=== PATIENT | male | born 1990 | race Caucasian/White ===

== ENCOUNTER 2016-11-18 01:54 | Emergency (ER) | payer OTHER ==
[~2016-11-18] VITALS: Ht 177.8 cm; Wt 82.7 kg
[2016-11-18 01:56] VITALS: TEMP 36.5; Ht 177.8 cm; Wt 82.7 kg
[2016-11-18] MEDS ORDERED: XYLOCAINE 1%/SOD BICARB 20 ML VIAL INFIL ONE (02:30)
[2016-11-18] MEDS ORDERED: AMOXICIL/CLAVU 875MG HOME PACK PO ONE (02:30)
[2016-11-18] MEDS ORDERED: CITA20TA9 PO (02:46)
[2016-11-18] MEDS ORDERED: AMOX875T PO (03:44)
--- NOTE | 2016-11-18 03:45 | EMERGENCY ROOM VISIT NOTE ---
ED Visit Note First contact with patient: 02:03 Chief Complaint: Facial Laceration History of Present Illness: Patient is a 26-year-old male who presents to the emergency department by private vehicle for evaluation of a dog bite to the LEFT sided cheek. The patient is to drinking alcohol this evening. He reports that he went downstairs to get another beer when he was reportedly bitten by the dog. He reports the dog is his roommates. He is not completely certain, but feels so the dog is up-to-date on all vaccinations and immunizations. He was recently adopted a 1.5 months ago. The patient claims a moderate bleeding to the LEFT-sided face. He reports minimal discomfort rating his pain a 0/10. His tetanus status is up-to-date. He denies any headaches, dizziness, neck pain , nausea, or vomiting. Medications: No current medications. Allergies: No known allergies. PMH: No pertinent past medical history. 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 ROS: All pertinent positive and negative review of systems are appropriately documented in the History of Present Illness. Physical Exam: VITAL SIGNS - Vital signs and nursing notes were reviewed. GENERAL - 26-year-old male appearing his stated age. Communicates well with provider and answers questions appropriately. Smells of alcohol. Intoxicated. SKIN - There are 2 small 1.0 cm lacerations noted to the LEFT-sided cheek. The edges gape apart with traction. There is no active bleeding appreciated. No deep structures including vessels, musculature, or bony structures are appreciated. HEAD - Normocephalic. No Contreras's Sign or Raccoon's Eyes. No depressed skull fractures palpable. EYES - PERRL with EOMI bilaterally. Without subconjunctival hemorrhage. Palpebral conjunctiva pink and moist with no injection. EARS - No deformities of external structures noted on gross examination bilaterally. No hemotympanum present. No tympanic perforation noted. Handle of malleus, umbo, cone of light, pars tensa/flaccid all easily visualized. NOSE - Midline and without cyanosis. No epistaxis or clear watery discharge noted. Septum midline without deviation. No septal hematoma noted. No overlying ecchymosis noted. MOUTH/OROPHARYNX - Without perioral cyanosis. Tongue midline with equal elevation of palate bilaterally. No blood noted in the oropharynx. No tonsillar hypertrophy, erythema, or exudates noted. No dental fractures noted. NECK - FROM assessed. No nuchal rigidity. No tenderness to palpation over the cervical spinous processes. No cervical paraspinal muscle tenderness noted. LUNGS - Chest wall symmetric without accessory muscle use, intercostals retractions, or central cyanosis. Normal vesicular breath sounds CTA B/L. No wheezes, rales, or rhonchi appreciated. CARDIAC - RRR with S1/S2. No murmur, rubs, or gallops appreciated. NEUROLOGIC - Cranial nerves II through XII grossly intact. Sensory intact to light touch throughout. PSYCH - A&Ox3 and cooperates fully with examiner. Pt is very pleasant and interacts well with examiner. ED Course: Patient was seen and evaluated by myself. Patient is pleasantly intoxicated. Patient had no focal neurological deficits. Patient's exam is otherwise unremarkable. Patient reports no headaches, visual disturbances, nausea, vomiting, or over-lethargy. Costs and benefits of performing primary wound closure versus no repair were discussed with the patient who verbalizes understanding. Verbal consent was obtained prior to performing the procedure. 1.0 cc of 1% buffered lidocaine was used to anesthetize the LEFT cheek lacerations. The wounds were cleansed and prepped in the typical sterile fashion utilizing normal saline and Betadine. The wounds were sterilely draped. Once proper anesthetization was established, the wounds were further examined and demonstrated no injury to deep structures. The wounds were copiously irrigated with normal saline and Betadine. The wounds were closed using 4 simple , 6-0 nylon sutures with the wound edges being loosely approximated. Patient tolerated the procedure well. No complications were met. The wound was cleansed and dressed with a Bacitracin dressing. Patient was prophylactically treated with Augmentin. Patient educated on worrisome symptoms for return visit to the Emergency Department. Patient discharged to home in good condition. Impression: Dog Bite to Face Discharge Instructions: You have received 4 sutures on your face. These sutures are NOT dissolvable and WILL need to be removed by a health care provider in 5-7 days. You can return to the Emergency Department or contact your Primary Care Provider to have the sutures removed. Proper wound care is essential for adequate wound healing and infection prevention. You can shower and clean the wound with soap and water. Do not scour over the wound, pat dry with a towel. Do not submerse the wound (i.e. bathe or dish wash) until the sutures have been removed. You can use an antibiotic ointment with a dressing over the wound for the next 3-4 days. After this time you may leave the wound dry and open to the air. If crust develops over the wound you can use a Q-tip to apply a 1:1 peroxide:water solution to clean the wound. Look for signs of infection of the wound including: increased pain, swelling, foul discharge, streaking, or increased temperature. If any of these are noticed you should return to the Emergency Department for further assessment and treatment. As with any laceration you may have received nerve damage to the surrounding tissues. This damage may or may not be permanent. You should keep the area covered with sunscreen for the first 6 months to 1 year when at risk for exposure to help minimize scarring. You can also use scar reducing creams or Vitamin E oil to help minimize scarring. You were prescribed Augmentin to be taken as prescribed. This is an antibiotic. All antibiotics have the potential to cause diarrhea. Stop this medication and contact a medical provider if you were to develop any significant adverse side effects including: wheezing, shortness of breath, passing out, vomiting, or a diffuse rash. Always take antibiotics as directed and COMPLETE the ENTIRE course regardless of the improvement of your symptoms. For pain control, you can use the following [id number]-[id number] medicines (if >12 yo): - Regular strength (325mg/tab) Tylenol (acetaminophen) 2 tabs every 4-6 hours as needed. Do not exceed 12 tablets in a 24 hour period. Avoid taking more than 4 grams (4000 mg) of Tylenol per day. This includes any other sources of acetaminophen you may take on a regular basis. - Regular strength (200 mg/tab) Advil (ibuprofen) 1-2 tabs every 4-6 hours as needed. Do not exceed a dose of 3200 mg per day. Return to the emergency department if your symptoms worsen despite treatment course outlined above. Problem List Medical Problems: (1) Asthma Status: Chronic (2) Concussion Status: Chronic Surgical Problems: (1) History of shoulder surgery Status: Resolved Current/Historical Medications Scheduled Amoxicillin & Pot Clavulanate (Augmentin 875-125 mg), 875 MG PO BID Citalopram Hydrobromide (Celexa), 20 MG PO DAILY Allergies Coded Allergies: No Known Allergies (Unverified , 11/18/16) Vital Signs Date Time Temp Pulse Resp B/P Pulse Ox O2 Delivery O2 Flow Rate FiO2 11/18/16 03:53 83 16 132/64 94 11/18/16 01:56 36.5 88 20 141/77 96 Room Air Medications Administered Medications (Trade) Dose Ordered Sig/Adam Route Start Time Stop Time Status Last Admin Dose Admin Amoxicillin/ Clavulanate Potassium (Augmentin 875MG Home Pack) 1 homepack UD ONCE PO 11/18/16 02:30 11/18/16 02:31 DC 11/18/16 02:30 1 HOMEPACK Departure Information Impression Primary Impression: Dog bite Additional Impression: Face lacerations Dispostion Home / Self-Care Condition GOOD Prescriptions Amoxicillin & Pot Clavulanate (Augmentin 875-125 mg) 1 Tab Tab 875 MG PO BID for 5 Days, #10 TAB Prov: Juan Pablo De La O, RADHA 11/18/16 Referrals No Doctor, Assigned (PCP) Patient Instructions ED Bite Dog, Colette [facility] Additional Instructions You have received 4 sutures on your face. These sutures are NOT dissolvable and WILL need to be removed by a health care provider in 5-7 days. You can return to the Emergency Department or contact your Primary Care Provider to have the sutures removed. Proper wound care is essential for adequate wound healing and infection prevention. You can shower and clean the wound with soap and water. Do not scour over the wound, pat dry with a towel. Do not submerse the wound (i.e. bathe or dish wash) until the sutures have been removed. You can use an antibiotic ointment with a dressing over the wound for the next 3-4 days. After this time you may leave the wound dry and open to the air. If crust develops over the wound you can use a Q-tip to apply a 1:1 peroxide:water solution to clean the wound. Look for signs of infection of the wound including: increased pain, swelling, foul discharge, streaking, or increased temperature. If any of these are noticed you should return to the Emergency Department for further assessment and treatment. As with any laceration you may have received nerve damage to the surrounding tissues. This damage may or may not be permanent. You should keep the area covered with sunscreen for the first 6 months to 1 year when at risk for exposure to help minimize scarring. You can also use scar reducing creams or Vitamin E oil to help minimize scarring. You were prescribed Augmentin to be taken as prescribed. This is an antibiotic. All antibiotics have the potential to cause diarrhea. Stop this medication and contact a medical provider if you were to develop any significant adverse side effects including: wheezing, shortness of breath, passing out, vomiting, or a diffuse rash. Always take antibiotics as directed and COMPLETE the ENTIRE course regardless of the improvement of your symptoms. For pain control, you can use the following zhtt-rli-uyahlhz medicines (if >12 yo): - Regular strength (325mg/tab) Tylenol (acetaminophen) 2 tabs every 4-6 hours as needed. Do not exceed 12 tablets in a 24 hour period. Avoid taking more than 4 grams (4000 mg) of Tylenol per day. This includes any other sources of acetaminophen you may take on a regular basis. - Regular strength (200 mg/tab) Advil (ibuprofen) 1-2 tabs every 4-6 hours as needed. Do not exceed a dose of 3200 mg per day. Return to the emergency department if your symptoms worsen despite treatment course outlined above. Problem Qualifiers Primary Impression: Dog bite Encounter type: initial encounter Qualified Codes: W54.0XXA - Bitten by dog , initial encounter Additional Impression: Face lacerations Encounter type: initial encounter Qualified Codes: S01.81XA - Laceration without foreign body of other part of head, initial encounter
[2016-11-18 03:53] VITALS: BP 132/64; PULSE 83; O2SAT 94
== END 2016-11-18 04:00 | disposition home or self-care (01) ==
LOC: C.EDB 01:55 → C.EDA 04:00
DX: S01.81XA Laceration without foreign body of other part of head, initial encounter (principal); W54.0XXA Bitten by dog, initial encounter; J45.909 Unspecified asthma, uncomplicated; Z87.820 Personal history of traumatic brain injury; Z79.899 Other long term (current) drug therapy; Z98.890 Other specified postprocedural states

== ENCOUNTER 2016-11-22 12:15 | Emergency (ER) | payer OTHER ==
[~2016-11-22] VITALS: Ht 177.8 cm; Wt 81.5 kg
[~2016-11-22 12:15] MED LIST: AMOX875T PO; CITA20TA9 PO
[2016-11-22 12:20] VITALS: BP 123/79; PULSE 64; TEMP 36.8; O2SAT 96; Ht 177.8 cm; Wt 81.5 kg
--- NOTE | 2016-11-22 12:53 | EMERGENCY ROOM VISIT NOTE ---
History First contact with patient: 12:45 Chief Complaint: SUTURE/STAPLE REMOVAL Stated Complaint: STITCHES REMOVED Nursing Triage Summary: patient here to have sutures removed from left side of face History of Present Illness The patient is a 26 year old male who presents to the Emergency Room for suture removal from a facial laceration that was repaired in our department 4 days ago. The patient sustained a dog bite to the face. He is continuing with his Augmentin antibiotics. He denies any wound complications. Review of Systems Noncontributory Past Medical/Surgical History Medical Problems: (1) Asthma (2) Concussion Surgical Problems: (1) History of shoulder surgery Family History Diabetes mellitus Social History Smoking Status: Never Smoker Alcohol Use: occasionally Marital Status: single Housing Status: lives with roommate Occupation Status: [employer] student Current/Historical Medications Scheduled Amoxicillin & Pot Clavulanate (Augmentin 875-125 mg), 875 MG PO BID Citalopram Hydrobromide (Celexa), 20 MG PO DAILY Allergies Coded Allergies: No Known Allergies (Unverified , 11/18/16) Physical Exam Vital Signs Date Time Temp Pulse Resp B/P Pulse Ox O2 Delivery O2 Flow Rate FiO2 11/22/16 12:20 36.8 64 20 123/79 96 Room Air Physical Exam HEENT: Examination shows well-healing lacerations on the left cheek and under the mandible. Sutures were removed without any complications or diastases. Medical Decision & Procedures ED Course The patient was provided additional verbal wound care instructions, including use of vitamin E oil and a high SPF factor sunblock to minimize scar darkening. The patient was encouraged to follow-up with his PCP as needed. The patient was happy with plan of care. Impression Primary Impression: Encounter for removal of sutures Additional Impression: Facial laceration Departure Information Referrals No Doctor, Assigned (PCP) Patient Instructions My [facility] Problem Qualifiers Additional Impression: Facial laceration Encounter type: subsequent encounter Qualified Codes: S01.81XD - Laceration without foreign body of other part of head, subsequent encounter
== END 2016-11-22 12:53 | disposition home or self-care (01) ==
LOC: C.EDB 12:15 → C.EDD 12:53
DX: Z48.02 Encounter for removal of sutures (principal); S01.81XD Laceration without foreign body of other part of head, subsequent encounter; W54.0XXD Bitten by dog, subsequent encounter; J45.909 Unspecified asthma, uncomplicated; Z87.820 Personal history of traumatic brain injury; Z98.890 Other specified postprocedural states; Z83.3 Family history of diabetes mellitus